=== PATIENT | male | born 1960 | race Hispanic/Latino ===

== ENCOUNTER → 2023-08-28 | Outpatient (CLI) | payer OTHER ==
[2023-08-28 16:24] LABS: CREATININE 1.1 mg/dL (0.5-1.5); POTASSIUM 4.2 mmol/L (3.5-5.1)
== END | disposition home or self-care (01) ==
LOC: LAB 12:45
PROVIDERS: ATTEND Internal Medicine
DX: I25.119 Atherosclerotic heart disease of native coronary artery with unspecified angina pectoris (principal)
CPT/HCPCS: 36415; 80048

== ENCOUNTER → 2023-09-19 | Outpatient (CLI) | payer OTHER | END | disposition home or self-care (01) | LOC: SHCH 09:19 → EDUNIT# 10:00 | PROVIDERS: ATTEND Internal Medicine | DX: I35.8 Other nonrheumatic aortic valve disorders (principal); E11.9 Type 2 diabetes mellitus without complications; E78.5 Hyperlipidemia, unspecified; I10 Essential (primary) hypertension | CPT/HCPCS: 93306 ==

== ENCOUNTER → 2023-09-20 | Outpatient (CLI) | payer OTHER ==
[~2023-09-20] MED LIST: IOHEXOL 350 MG/ML 100ML INFUS..BTL IV ONE; METOPROLOL TARTRATE 1 MG/ML 5ML VIAL IV ONE
== END | disposition home or self-care (01) ==
LOC: EDUNIT# 09-04 11:30 → RAH 09:20
PROVIDERS: ATTEND Internal Medicine
DX: I25.119 Atherosclerotic heart disease of native coronary artery with unspecified angina pectoris (principal)
CPT/HCPCS: 75574; J3490 ×3; Q9967

== ENCOUNTER 2023-11-05 06:23 | Day surgery (SDC) | payer OTHER ==
[2023-11-01 12:45] LABS: POTASSIUM 3.8 mmol/L (3.5-5.1)
[2023-11-01 12:56] LABS: INR 1.03 (0.85-1.15); PROTHROMBIN TIME 11.9 SEC (9.6-11.6)
[2023-11-01 12:58] LABS: PARTIAL THROMBOPLASTIN TIME 30.5 SEC (26.3-35.5)
[2023-11-01 13:42] LABS: APPEARANCE,URINE CLEAR (CLEAR); BILIRUBIN,URINE NEGATIVE (NEGATIVE); COLOR,URINE YELLOW (YELLOW); GLUCOSE, URINE (UA) NEGATIVE (NEGATIVE); KETONES,URINE NEGATIVE (NEGATIVE); LEUKOCYTE ESTERASE ,URINE NEGATIVE Leu/uL (NEGATIVE); NITRATE,URINE NEGATIVE (NEGATIVE); OCCULT BLOOD,URINE NEGATIVE (NEGATIVE); PH,URINE 5.5 (5.0-8.0); PROTEIN,URINE NEGATIVE (NEGATIVE); UROBILINOGEN,URINE 0.2 mg/dL (0.2-1.0)
[2023-11-01 13:43] LABS: ADD UA MICROSCOPIC NO
[2023-11-01 15:22] VITALS: BP 148/75; PULSE 71; RESP 16
[~2023-11-05] VITALS: Ht 172.7 cm; Wt 80.3 kg
[2023-11-05] VITALS (8 sets, daily range): BP systolic 113–145; BP diastolic 74–84; PULSE 65–81; RESP 16–18
[~2023-11-05 06:23] MED LIST changes: +AEC81 PO; +ATOR10 PO; +GLIM2TAB30 PO; -IOHEXOL 350 MG/ML 100ML INFUS..BTL IV ONE; +METO-408 PO; -METOPROLOL TARTRATE 1 MG/ML 5ML VIAL IV ONE; +TIRZ2.5P SQ
[2023-11-05] MEDS ORDERED: 0.9%NACL 1000ML 1,000 ML IV ONE (06:57)
[2023-11-05] MEDS ORDERED: MIDAZOLAM HCL 1 MG/ML 2ML VIAL ONE ×2 (08:44→09:58)
[2023-11-05] MEDS ORDERED: HEPARIN 10,000 UNIT/10ML (1,000 UNIT/ML) VIAL ONE (08:44)
[2023-11-05] MEDS ORDERED: IOHEXOL-350 75 ML VIAL IV ONE (08:44)
[2023-11-05] MEDS ORDERED: FENTANYL CITRATE PF 50 MCG/1 ML 2ML VIAL ONE (08:44)
[2023-11-05] MEDS ORDERED: VERAPAMIL HCL 2.5 MG/ML VIAL ONE (08:44)
[2023-11-05] MEDS ORDERED: LIDOCAINE HCL 400MG/20ML VIAL ONE (08:45)
[2023-11-05] MEDS ORDERED: ASPIRIN 325MG EC TAB PO ONE (10:44)
[2023-11-05] MEDS ORDERED: TICAGRELOR 90 MG TABLET ONE (10:44)
[2023-11-05] MEDS ORDERED: ACETAMINOPHEN WITH CODEINE 1 TAB TAB PO PRN (11:00)
[2023-11-05] MEDS ORDERED: 0.9%NACL 1000ML 1,000 ML IV SCH (11:00)
== END 2023-11-05 13:58 | disposition home or self-care (01) ==
LOC: DAH 06:23
PROVIDERS: ATTEND Internal Medicine
DX: I25.118 Atherosclerotic heart disease of native coronary artery with other forms of angina pectoris (principal); I10 Essential (primary) hypertension; E11.9 Type 2 diabetes mellitus without complications; Z79.899 Other long term (current) drug therapy; Z79.82 Long term (current) use of aspirin; Z85.6 Personal history of leukemia; Z95.5 Presence of coronary angioplasty implant and graft; Z79.01 Long term (current) use of anticoagulants; Z83.3 Family history of diabetes mellitus
CPT/HCPCS: 80048; 83880; 85610; 85730; 81003; 36415 ×2; 71045; 93005; 92978; 85347; 82948; 93458; C9600; C1887 ×3; C1769 ×3; C1894 ×3; C1725 ×2; C1874; C1760; A4649; C1753; J3010; J3490 ×2; J7030; J1644 ×3; J2250 ×2; Q9967; A4215; A4222; A4221; A4663; A4216; A4606; A4223 ×3; 99156; 99157

== ENCOUNTER → 2024-06-09 | Outpatient (CLI) | payer OTHER | END | disposition home or self-care (01) | LOC: RAH 07:27 | PROVIDERS: ATTEND Urology | DX: K40.20 Bilateral inguinal hernia, without obstruction or gangrene, not specified as recurrent (principal); N50.3 Cyst of epididymis; N50.9 Disorder of male genital organs, unspecified | CPT/HCPCS: 76870 ==